=== PATIENT | female | born 1995 | race African-American/Black ===

== ENCOUNTER 2018-12-18 10:50 | Emergency (ER) | payer OTHER ==
[~2018-12-18] VITALS: Ht 154.9 cm; Wt 54.4 kg
[2018-12-18] MEDS ORDERED: NKM (11:01)
--- NOTE | 2018-12-18 11:12 | NUR ---
ED Nurse Note: patient went outside to put money in her parking meter with her daughter.
--- NOTE | 2018-12-18 11:17 | NUR ---
ED Nurse Note: Patient walked into ED from home with her daughter patient c/o nausea and vomiting for 2-3 weeks. patient also c/o nasal congestion.
[2018-12-18] MEDS ORDERED: Azithromycin 250mg tab ORAL ONE (11:45)
[2018-12-18] MEDS ORDERED: Albuterol ud Inhalation HHN ONE (11:45)
[2018-12-18] MEDS ORDERED: Pseudoephedrine 30mg tab ORAL ONE (11:45)
--- NOTE | 2018-12-18 12:02 | NUR ---
ED Nurse Note: pt was reminded about urine sample. pt stated "I will go after breathing treatment."
[2018-12-18 12:41] LABS: APPEARANCE,URINE CLEAR; BILIRUBIN, URINE NEGATIVE (NEGATIVE); GLUCOSE, URINE (UA) NEGATIVE (NEGATIVE); KETONES,URINE NEGATIVE (NEGATIVE); LEUKOCYTE ESTERASE ,URINE 1+ (NEGATIVE); NITRITE,URINE NEGATIVE (NEGATIVE); PH,URINE 7 (4.5-8.0); PROTEIN,URINE 3+ (NEGATIVE); UROBILINOGEN,URINE 4 MG/DL (0.0-1.0)
[2018-12-18 12:50] LABS: COLOR,URINE YELLOW
--- NOTE | 2018-12-18 13:22 | Emergency Room Report ---
History of Present Illness General Chief Complaint: Nausea, Vomiting, and Diarrhea Source: Patient Present Illness HPI Patient presents with 2 weeks of upper respiratory symptomatology. She's had congestion, cough without color to the phlegm and has wheezing. Recently she's also had diarrhea. She moved her bowels twice yesterday. The stool is yellow in color without any blood. She's had some muscle aches. She also complains about chest pain when she is coughing. No edema or calf tenderness. No recent antibiotic use. Her daughter is also ill. She had upper respiratory symptoms also with diarrhea but now is getting better. She been using [id number] medication for the daughter. She feels she the illness is being passed between them. No abdominal pain. Last period beginning of the month. Time Buyer flow. No dysuria. No history of asthma or inhaler use in the past. 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 Last Menstrual Period: 12/09/18 Now: No Reviewed Nursing Documentation: PMH: Agreed; PSxH: Agreed Nursing Documentation-PMH Past Medical History: No Stated History Review of Systems All Other Systems: negative except mentioned in HPI Physical Exam Vital Signs Date Time Temp Pulse Resp B/P (MAP) Pulse Ox O2 Delivery O2 Flow Rate FiO2 12/18/18 10:57 98.2 73 16 110/68 99 Room Air 12/18/18 11:43 21 Sp02 EP Interpretation: reviewed, normal General Appearance: well appearing, no apparent distress Head: normocephalic, atraumatic Eyes: bilateral eye normal inspection, bilateral eye PERRL ENT: hearing grossly normal, normal pharynx, normal voice, moist mucus membranes Neck: full range of motion, supple Respiratory: chest non-tender, wheezing - minimal Cardiovascular #1: regular rate, rhythm Cardiovascular #2: 2+ radial (R) Gastrointestinal: normal inspection Musculoskeletal: digits/nails normal, gait/station normal, normal range of motion Neurologic: alert, oriented x3, normal gait, grossly normal Psychiatric: mood/affect normal Skin: no rash Medical Decision Making Diagnostic Impression: Primary Impression: URI (upper respiratory infection) Qualified Codes: J06.9 - Acute upper respiratory infection, unspecified Additional Impressions: Bronchospasm Diarrhea Qualified Codes: R19.7 - Diarrhea, unspecified ER Course Patient presents with upper respiratory symptoms with diarrhea and wheezing. Differential includes viral syndrome, bronchitis, pneumonia, gastroenteritis, allergies amongst others. The patient will be evaluated with urinalysis and test. She's afebrile at this time and influenza and pneumonia are doubted. She'll be given a breathing treatment and the pain on this I we will consider treating with albuterol. Antibiotics are not indicated at this time. Patient improved with the breathing treatment somewhat. Urinalysis clear test negative. Discussed treatment plan with the patient. She understands. She also understands that she needs follow-up with her physician. Patient stable for outpatient observation and treatment. Last Vital Signs Date Time Temp Pulse Resp B/P (MAP) Pulse Ox O2 Delivery O2 Flow Rate FiO2 12/18/18 13:30 98.2 86 19 109/78 98 Room Air 21 Status: improved Disposition: HOME, SELF-CARE Condition: Improved Scripts Ibuprofen* (MOTRIN*) 600 Mg Tablet 600 MG ORAL Q6H PRN for For Pain, #14 TAB Prov: Sage Fish MD 12/18/18 Chlorpheniramine Maleate (CHLOR-TRIMETON) 4 Mg Tablet 4 MG PO Q6HR PRN for congestion, #10 TAB 1 Refill Prov: Sage Fish MD 12/18/18 Hydrocodone Bit/Acetaminophen 5-325* (NORCO 5-325*) 1 Each Tablet 1 TAB ORAL Q6H PRN for For Pain, #6 TAB 0 Refills Prov: Sage Fish MD 12/18/18 Albuterol Sulfate* (ALBUTEROL SULFATE MDI*) 8.5 Gm Hfa.aer.ad 2 PUFF INH Q6H, #1 EA 0 Refills Prov: Sage Fish MD 12/18/18 Referrals: [facility],REFERRING (PCP) Sage Fish MD Dec 18, 2018 13:22
[2018-12-18] MEDS ORDERED: CHLOR-TRIMETON4 MG PO (13:26)
[2018-12-18] MEDS ORDERED: NORCO 5-325 TA1 EACH ORAL (13:26)
[2018-12-18] MEDS ORDERED: IBUPROFEN600 MG ORAL (13:26)
[2018-12-18] MEDS ORDERED: ALBUTEROL SULF8.5 GM INH (13:26)
[2018-12-18 13:30] VITALS: BP 109/78
--- NOTE | 2018-12-18 13:30 | NUR ---
ER DISCHARGE NOTE: Patient is cleared to be discharged per ERMD, pt is aox4, on room air, with stable vital signs. pt was given dc and prescription instructions, pt was able to verbalize understanding, pt id band removed. pt is able to ambulate with steady gait. pt took all belongings.
== END 2018-12-18 13:30 | disposition home or self-care (01) ==
LOC: EMR 12:00
DX: J06.9 Acute upper respiratory infection, unspecified (principal); J98.01 Acute bronchospasm; R19.7 Diarrhea, unspecified; Z88.6 Allergy status to analgesic agent; Z88.0 Allergy status to penicillin
CPT/HCPCS: 81003; 81025; 94640; 94664; 99284; Q0144